=== PATIENT | female | born 1990 | race Caucasian/White ===

== ENCOUNTER 2019-02-21 23:07 | Emergency (ER) | payer OTHER ==
[~2019-02-21] VITALS: Ht 167.6 cm; Wt 149.7 kg
[2019-02-21] MEDS ORDERED: LEXAPRO20 MG PO (23:16)
[2019-02-21] MEDS ORDERED: BUSPIRONE HCL10 MG PO (23:16)
[2019-02-21] MEDS ORDERED: COZAAR 25 MG TA25 M1 PO (23:16)
[2019-02-21] MEDS ORDERED: NUVARING (23:17)
[2019-02-21] MEDS ORDERED: NORVASC2.5 MG PO (23:17)
[2019-02-21] MEDS ORDERED: TRAZODONE 150150 M1 PO (23:17)
[2019-02-21] MEDS ORDERED: ADDERALL 30 MG30 MG PO (23:17)
[2019-02-21] MEDS ORDERED: EPIPEN0.3 MG/0.1 IM (23:18)
[2019-02-22 00:16] LABS: URINE BILIRUBIN NEGATIVE (Negative); URINE BLOOD 1+ (Negative); URINE CLARITY CLEAR; URINE COLOR YELLOW; URINE GLUCOSE-RANDOM NEGATIVE (Negative); URINE KETONES NEGATIVE (Negative); URINE LEUKOCYTES-REFLEX NEGATIVE (Negative); URINE NITRITE-REFLEX NEGATIVE (Negative); URINE PROTEIN NEGATIVE (Negative); URINE SPECIFIC GRAVITY >= 1.030 (1.005-1.030); URINE UROBILINOGEN 0.2 E.U./dl (0.2-1.0)
[2019-02-22 00:28] LABS: CASTS None Seen /LPF (None Seen); SQUAMOUS >10 Many /LPF (0-3)
[2019-02-22 00:29] LABS: CRYSTALS None Seen /LPF (None Seen); URINE RBC 0-2 Rare /HPF (0-2); URINE WBC-REFLEX 6-15 Few /HPF (0-5)
[2019-02-22 00:40] LABS: ABSOLUTE EOSINOPHILS 0.1 thou/uL (0.0-0.7); ABSOLUTE LYMPHOCYTES 1.3 thou/uL (0.8-5.3); ABSOLUTE MONOCYTES 0.4 thou/uL (0.0-1.2); BASOPHILS 0.6 %; EOSINOPHILS 1.1 %; HEMATOCRIT 37.8 % (37.0-47.0); HEMOGLOBIN 12.5 gm/dL (12.0-15.0); LYMPHOCYTES 16.8 %; MCH 28.6 pg (26.0-34.0); MCV 86.6 fL (80.0-100.0); MONOCYTES 4.6 %; MPV 8.2 fl. (7.2-11.1); NUCLEATED RBCS 0 /100WBC; PLATELET COUNT* 293 thou/uL (150-400); POLYS 76.9 %; RBC 4.36 mil/uL (4.20-5.00); RDW-CV 14.4 % (10.5-14.5); WBC 7.8 thou/uL (4.0-11.0)
[2019-02-22 00:43] LABS: CALCIUM 8.6 mg/dL (8.5-10.1); CREATININE 0.9 mg/dL (0.6-1.3)
[2019-02-22 00:47] LABS: ALBUMIN 3.1 g/dL (3.4-5.0); TOTAL BILIRUBIN 0.3 mg/dL (<0.1-1.0); TOTAL PROTEIN 7.1 g/dL (6.4-8.2)
[2019-02-22] MEDS ORDERED: NORCO 5-325 TA1 EAC1 PO (02:13)
[2019-02-22] MEDS ORDERED: ZOFRAN ODT4 MG PO (02:13)
[2019-02-22 02:26] VITALS: BP 143/67
== END 2019-02-22 02:27 | disposition home or self-care (01) ==
LOC: M.ERS 23:07
PROVIDERS: Emergency Medicine
DX: K82.9 Disease of gallbladder, unspecified (principal); R11.2 Nausea with vomiting, unspecified; I10 Essential (primary) hypertension; F32.9 Major depressive disorder, single episode, unspecified; F41.9 Anxiety disorder, unspecified; F90.9 Attention-deficit hyperactivity disorder, unspecified type

== ENCOUNTER 2019-12-06 12:01 | Emergency (ER) | payer OTHER ==
[~2019-12-06] VITALS: Ht 167.6 cm; Wt 149.7 kg
[~2019-12-06 12:01] MED LIST: ADDERALL 30 MG30 MG PO; BUSPIRONE HCL10 MG PO; COZAAR 25 MG TA25 M1 PO; EPIPEN0.3 MG/0.1 IM; LEXAPRO20 MG PO; NORCO 5-325 TA1 EAC1 PO; NORVASC2.5 MG PO; NUVARING; TRAZODONE 150150 M1 PO; ZOFRAN ODT4 MG PO
[2019-12-06] MEDS ORDERED: ABILIFY 5 MG TAB5 M1 PO (12:11)
[2019-12-06] MEDS ORDERED: MONTELUKAST SODI4 M1 PO (12:11)
[2019-12-06] MEDS ORDERED: PROAIR HFA8.5 GM INH (12:13)
[2019-12-06 12:48] LABS: ABSOLUTE BASOPHILS 0.1 thou/uL (0.0-0.2); ABSOLUTE EOSINOPHILS 0.2 thou/uL (0.0-0.7); ABSOLUTE LYMPHOCYTES 1.7 thou/uL (0.8-5.3); ABSOLUTE MONOCYTES 0.3 thou/uL (0.0-1.2); BASOPHILS 1.1 %; EOSINOPHILS 2.2 %; HEMATOCRIT 37.4 % (37.0-47.0); HEMOGLOBIN 12.3 gm/dL (12.0-15.0); LYMPHOCYTES 20.3 %; MCH 28.8 pg (26.0-34.0); MCV 87.2 fL (80.0-100.0); MONOCYTES 3.7 %; NUCLEATED RBCS 0 /100WBC; PLATELET COUNT* 291 thou/uL (150-400); POLYS 72.7 %; RBC 4.29 mil/uL (4.20-5.00); RDW-CV 14.2 % (10.5-14.5); WBC 8.2 thou/uL (4.0-11.0)
[2019-12-06 13:00] LABS: CALCIUM 8.6 mg/dL (8.5-10.1); POTASSIUM 4.2 mmol/L (3.5-5.1)
[2019-12-06 13:05] LABS: TOTAL BILIRUBIN 0.2 mg/dL (<0.1-1.0); TOTAL PROTEIN 7.5 g/dL (6.4-8.2)
[2019-12-06] MEDS ORDERED: MEDROLDOSEPACK PO (13:23)
[2019-12-06 13:47] VITALS: BP 110/48
--- NOTE | 2019-12-07 08:46 | EKG ---
[place] [address] ELECTROCARDIOGRAM REPORT Name: AUGIE OMALLEY Deja Room: [facility]#: [id number] Admission: 12/06/19 Attend Phys: Discharge: 12/06/19 Date of : 88 Date of Service: 12/06/19 1206 Report #: [id number] THIS REPORT FOR: //name// [facility] ED Test Date: 2019-12-06 Test Time: 12:06:18 Pat Name: AUGIE OMALLEY Department: Room: Gender: F [employer]: : 1990 Requested By: Order Number: [id number] Mildred MD: Bruce Petersen Measurements Intervals [place] Rate: 82 P: 70 MS: 157 QRS: 80 QRSD: 104 T: 26 QT: 370 QTc: 432 Interpretive Statements Sinus rhythm No previous ECG available for comparison Electronically Signed On 12-07-2019 8:44:13 CDT by Bruce Petersen [email or web address] <ELECTRONICALLY SIGNED> By: Bruce Petersen MD, [facility] 12/07/19 0844 1206 05 Bruce Petersen MD, FACC /EPI
== END 2019-12-06 13:47 | disposition home or self-care (01) ==
LOC: M.ERS 12:01
PROVIDERS: Personal Emergency Response Attendant
DX: R22.1 Localized swelling, mass and lump, neck (principal); T65.91XA Toxic effect of unspecified substance, accidental (unintentional), initial encounter; I10 Essential (primary) hypertension; F17.210 Nicotine dependence, cigarettes, uncomplicated; Z88.6 Allergy status to analgesic agent; Z88.8 Allergy status to other drugs, medicaments and biological substances; Y92.89 Other specified places as the place of occurrence of the external cause